=== PATIENT | female | born 2000 | race Caucasian/White ===

== ENCOUNTER → 2022-08-07 10:41 | Outpatient (BNVA) | payer OTHER, SELFPAY | PROVIDERS: PCP Pediatrics Adolescent Medicine; Visit Provider Physician Assistant | DX: R10.9 Unspecified abdominal pain (principal); R63.4 Abnormal weight loss; K52.9 Noninfective gastroenteritis and colitis, unspecified; Z86.19 Personal history of other infectious and parasitic diseases; Z98.890 Other specified postprocedural states | CPT/HCPCS: 99202 ==

== ENCOUNTER 2022-08-07 11:44 | Outpatient (REF) | payer OTHER, SELFPAY ==
[2022-08-07 14:01] LABS: MANUAL DIFF FLAG NO
[2022-08-07 14:10] LABS: Basophils Percent Auto 0.4 % (0-2); Eosinophils Absolute Auto 0.1 X10*3/uL (0.0-0.4); Eosinophils Percent Auto 0.9 % (0-4); Hematocrit 43.6 % (37.0-47.0); Hemoglobin 14.6 g/dl (12.0-16.0); Imm Gran Abs Auto 0.02 X10*3/uL (0.00-0.03); Imm Gran Pct Auto 0.3 % (0.0-0.4); Lymphocytes Absolute Auto 1.9 X10*3/uL (1.2-4.9); Mean Corpuscular HGB Conc 33.5 g/dl (31.0-35.0); Mean Corpuscular Hemoglobin 31.5 pg (27.0-33.0); Mean Corpuscular Volume 94.2 fL (80.0-98.0); Mean Platelet Volume 11.5 fL (9.4-12.3); Monocytes Absolute Auto 0.5 X10*3/uL (0.1-1.2); Monocytes Percent Auto 6.9 % (2-11); Neutrophils Absolute Auto 4.2 x10*3/uL (2.0-8.3); Neutrophils Percent Auto 63.5 % (45-73); Platelet Count 242 X10*3/uL (160-400); Red Blood Count 4.63 X10*6/uL (4.20-5.50); Red Cell Distribution Width 13.1 % (11.0-16.0); White Blood Count 6.7 X10*3/uL (4.8-10.8)
[2022-08-07 14:45] LABS: Alanine Aminotransferase 13 U/L (0-31); Albumin Level 4.3 g/dL (3.5-5.0); Alkaline Phosphatase 46 U/L (39-117); Anion Gap 15 (12-20); Aspartate Amino Transferase 14 U/L (5-31); Bilirubin Total 0.7 mg/dL (0.0-1.0); Blood Urea Nitrogen 6 mg/dL (9-16); C Reactive Protein 0.64 mg/dL (< or = 0.50); Calcium 9.3 mg/dL (8.4-10.2); Carbon Dioxide 22 mmol/L (22-29); Chloride 107 mmol/L (96-108); Estimated Glomerular Filt Rate > 60; Glucose Random 91 mg/dL (60-115); Potassium 4.3 mmol/L (3.3-5.1); Sodium 140 mmol/L (135-145)
[2022-08-07 14:58] LABS: Erythrocyte Sedimentation Rate 4 MM/HR (0-20)
[2022-08-07 15:16] LABS: Folate 10.3 ng/mL (> or = 4.0); Thyroid Stimulating Hormone 1.28 uIU/mL (0.32-4.0); Vitamin B12 372 pg/mL (200-900)
[2022-08-09 22:49] LABS: Transglutaminase IgA <1.0 U/mL
[2022-08-12 14:38] LABS: Endomysial IgA Antibody Negative (Negative)
== END 2022-08-07 11:45 | disposition home or self-care (01) ==
LOC: HO.WFDLDS 11:44
PROVIDERS: Visit Provider Physician Assistant
DX: R10.9 Unspecified abdominal pain (principal); K52.9 Noninfective gastroenteritis and colitis, unspecified; D64.9 Anemia, unspecified; R19.8 Other specified symptoms and signs involving the digestive system and abdomen
CPT/HCPCS: 36415; 80053; 82607; 82746; 84443; 85025; 85652; 86140; 86231; 86364; 99212

== ENCOUNTER 2022-08-09 12:31 | Outpatient (REF) | payer OTHER, SELFPAY ==
[2022-08-09 15:31] LABS: CDiff Gene PCR POSITIVE (Negative)
[2022-08-09 16:20] LABS: CDiff Toxin Positive (Negative)
[2022-08-09 16:21] LABS: CDIFF Internal ctrl Dots and bkg OK (V)
[2022-08-10 09:42] LABS: Adenovirus F 40/41 Not Detected (Not Detect.); Astrovirus Not Detected (Not Detect.); Campylobacter Not Detected (Not Detect.); Cryptosporidium Not Detected (Not Detect.); Cyclospora cayetanensis Not Detected (Not Detect.); E. coli EAEC Not Detected (Not Detect.); E. coli EPEC Not Detected (Not Detect.); E. coli ETEC Not Detected (Not Detect.); E. coli STEC Not Detected (Not Detect.); Entamoeba histolytica Not Detected (Not Detect.); Giardia lamblia Not Detected (Not Detect.); Norovirus GI/GII Not Detected (Not Detect.); Plesiomonas shigelloides Not Detected (Not Detect.); Rotavirus A Not Detected (Not Detect.); Salmonella Not Detected (Not Detect.); Sapovirus Not Detected (Not Detect.); Shigella sp./EIEC Not Detected (Not Detect.); Vibrio Not Detected (Not Detect.); Vibrio Cholerae Not Detected (Not Detect.); Yersinia enterocolitica Not Detected (Not Detect.)
[2022-08-16 20:39] LABS: Calprotectin, Fecal 160 mcg/g
== END 2022-08-09 12:32 | disposition home or self-care (01) ==
LOC: HO.WFDLNP 12:31
PROVIDERS: Visit Provider Physician Assistant
DX: A04.8 Other specified bacterial intestinal infections (principal); K52.9 Noninfective gastroenteritis and colitis, unspecified; R10.9 Unspecified abdominal pain; Z86.19 Personal history of other infectious and parasitic diseases
CPT/HCPCS: 83993; 87324; 87338; 87493; 87507

== ENCOUNTER → 2022-10-23 12:53 | Outpatient (BNVA) | payer OTHER, SELFPAY | PROVIDERS: PCP Pediatrics Adolescent Medicine; Visit Provider Physician Assistant | DX: K52.9 Noninfective gastroenteritis and colitis, unspecified (principal); A49.8 Other bacterial infections of unspecified site; B77.9 Ascariasis, unspecified | CPT/HCPCS: 99202 ==

== ENCOUNTER 2022-12-21 10:52 | Outpatient (AMB) | payer OTHER, SELFPAY ==
--- NOTE | 2022-12-21 11:05 | A.OFFVIS_ITS ---
Intake Vital Signs 12/21/22 11:11 Pulse 64 Intake Visit Reasons: 3rd Opinion per julito Intake Note: Patient follow weight loss. Patient cc: weight loss, abdominal pain on and off, and diarrhea come and go. Inspector Publications Required: No Accompanied by: Self / Same As Patient Allergies metronidazole Allergy (Mild, Verified 12/21/22 11:02) Angioedema HPI 3rd Opinion per julito HPI Details 22 y/o female being seen for f/u RECAP: Initially seen by [facility]--referred for weight loss and diarrhea- Was suspected to have chrons disease. She had an EGD & colonoscopy 2020- @ [facility]- results are unclear-treated for HP- no available appt with MD at [facility] until January-so referred here to [facility] She had been treated for Cdiff- 05/2021---unable to take vanc but took dificid which took away her sx Was advised to repeat colonoscopy due to inflammation- INTERIM: Weight has remained stabel at around 120--use to weigh 184 # few yrs ago she still has diarrhea, sometimes the stool is solid no blood in stool, slime noted she has lower abdominal pain she can have nausea, and post prandial diarrhea no dysphagia no reflux she has kidney stones and is going to have lithotripsy she denies mouth ulcers she has joint pain and swelling at times she has had neg tests for GC no vaginal sx she says she was noted to have Ab to [facility] and she got treatment, she is unsure if this really helped or not she said she had lactose testing in [facility] and is not lactose intolerant non smoker, not taking nsaids, no alcohol EXAM: GENERAL: The patient is well developed and nontoxic. Thin with acne noted VITAL SIGNS:see workflow HEENT: Nonicteric sclerae, PERRLA, EOMI. Oropharynx clear. Moist mucous membranes. Conjunctivae appear well perfused. No thyroid mass. CHEST: Chest wall is nontender. HEART: Regular rate and rhythm without murmurs. LUNGS: Clear to auscultation bilaterally. ABDOMEN: Soft, positive bowel sounds, tender urbano umbilical area, no organomegaly.no flank tenderness SKIN: No rash, no excessive bruising, petechiae, or purpura. NEUROLOGIC: Cranial nerves II-XII intact without motor/sensory deficit. A/P: 1/ Ongoing abdominal sx and diarrhea, not all results, are available ? 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
[2022-12-21 11:11] VITALS: PULSE 64
== END 2022-12-21 11:38 | disposition home or self-care (01) ==
PROVIDERS: PCP Pediatrics Adolescent Medicine; Visit Provider Internal Medicine Gastroenterology
DX: K52.9 Noninfective gastroenteritis and colitis, unspecified (principal)
CPT/HCPCS: 99213

== ENCOUNTER → 2022-12-21 10:52 | Outpatient (BNVA) | payer OTHER, SELFPAY | PROVIDERS: PCP Pediatrics Adolescent Medicine; Visit Provider Internal Medicine Gastroenterology | DX: R10.33 Periumbilical pain (principal) | CPT/HCPCS: 99212 ==